=== PATIENT | male | born 1975 | race Caucasian/White ===

== ENCOUNTER 2022-06-07 18:09 | Inpatient (IN) | payer MEDICAID, SELFPAY ==
[2022-06-07 18:14] VITALS: BP 176/102; PULSE 104; RESP 20; TEMP 37.1; O2SAT 95
--- NOTE | 2022-06-07 18:33 | ED.C_ITS ---
HPI - Psych General: Chief Complaint: Psychiatric Symptoms Stated Complaint: SI Time Seen by Provider: 06/07/22 18:33 History of Present Illness: Mr. Marley is a 46-year-old gentleman with apparent history of depression presenting to the emergency department due to worsening depression with suicidal ideation. He reports a longstanding history with intermittent previous medication use however is not currently on medications, last psychiatric hospitalization was approximately 18 months ago. He reports worsening symptoms in the context of social stressors including losing his job, being away from his children, and money issues. Symptoms have intensified to the point that he feels quite suicidal and has considered various ways including overdose, hanging, being struck by motor vehicle. Reports poor sleep and poor appetite. He has a remote history of alcohol abuse and did drink a bottle of alcohol yesterday. Overall course of symptoms has worsened. No other specific changes in health, exacerbating, or alleviating factors identified. Duration: getting worse History of same: Yes Context: significant life stressor If self harm: admits thoughts of self harm and has plan Review of Systems General: Reports: 10 or more systems reviewed and unremarkable except in HPI and below PFSH ED PFSH: Medical History (Updated 06/12/22 @ 22:32 by Isai Feng MD) Depression Surgical History (Updated 06/12/22 @ 22:32 by Isai Feng MD) No significant past surgical history Physical Exam Const: COMMON NORMALS: alert GENERAL APPEARANCE: cooperative and well developed HENMT: COMMON NORMALS: normocephalic and atraumatic HEAD & SCALP: normocephalic and atraumatic Eye: COMMON NORMALS: conjunctivae normal CONJUNCTIVA: Yes conjunctivae normal SCLERA: sclerae normal Neck/C-Spine: COMMON NORMALS: supple GENERAL: Yes trachea midline Resp: COMMON NORMALS: clear to auscultation bilaterally EFFORT & INSPECTION: Yes able to speak in complete sentences AUSCULTATION: clear to auscultation bilaterally Cardio: COMMON NORMALS: regular rate and regular rhythm RATE: regular rate RHYTHM: regular rhythm GI: COMMON NORMALS: Soft to palpation PALPATION: Yes Soft to palpation and No Tenderness to palpation present (GI) Extremity: GENERAL: Yes normal exam except as noted and No edema Neuro: COMMON NORMALS: moves all extremities SENSORIUM/ORIENTATION: Yes alert and No Orientation impaired Psych: COMMON NORMALS: mental status grossly normal and Normal thought process present MOOD & AFFECT: Yes depressed mood, Yes sad and Yes Labile affect present THOUGHT PROCESS: Normal thought process present Course Vital Signs: Vital signs: Vital Signs Temperature 98.3 F 06/12/22 20:22 Pulse Rate 68 06/12/22 20:22 Respiratory Rate 16 06/12/22 20:22 Blood Pressure 168/94 06/12/22 20:22 Pulse Oximetry 96 06/12/22 20:22 Oxygen Delivery Me thod 06/07/22 22:52 MDM - Psych Medical Decision Making 47-year-old gentleman presenting with worsening suicidal ideation with a plan in the context of alcohol use and social stressors. No injuries on exam the patient is calm and cooperative. No significant hematologic or metabolic panel abnormalities requiring intervention, patient can adequately orally rehydrate. Toxic ingestions negative. UDS positive for THC. Based on ED evaluation and clinical history provided no indication for imaging at this time. Given worsening symptoms including suicidal ideation with plan believe that inpatient management is appropriate. Based on ED evaluation at this point there is no obvious condition that would preclude the patient from inpatient management of psychiatric concerns. The results of ED evaluation were discussed with the patient including plan for admission due to requirement for level of care not available if discharged to prevent significant worsening/deterioration. Patient agreeable with plan. Discussed with psychiatry service who was agreeable to admit patient. Medical Records I reviewed the patient's medical records. Lab Data I reviewed the patient's lab results. 06/07/22 19:31 06/07/22 19:31 Laboratory Results WBC 8.0 10^3/uL (4.0-10.0) 06/07/22 19: RBC 5.06 10^6/uL (4.1-5.3) 06/07/22 19: Hgb 16.5 g/dL (11.7-16.6) 06/07/22 19: Hct 46.0 % (42.0-52.0) 06/07/22 19: MCV 90.9 fl (80-94) 06/07/22 19: MCH 32.6 pg (28.0-34.0) 06/07/22 19: MCHC 35.9 g/dL (30.0-36.0) 06/07/22 19: RDW 11.8 % (12.1-15.1) L 06/07/22 19: Plt Count 264 10^3/cmm (130-400) 06/07/22 19: MPV 9.1 fL (7.4-10.4) 06/07/22 19: Neut % (Auto) 67.4 % 06/07/22 19: Lymph % (Auto) 23.4 % 06/07/22 19: Forrest % (Auto) 6.4 % 06/07/22 19: Eos % (Auto) 1.9 % 06/07/22 19: Baso % (Auto) 0.6 % 06/07/22 19: Neut # (Auto) 5.38 10^3/uL (1.8-7.7) 06/07/22: Lymph # (Auto) 1.9 10^3/uL (0.8-4.8) 06/07/22 19: Forrest # (Auto) 0.5 10^3/uL (0.2-0.9) 06/07/22: Eos # (Auto) 0.2 10^3/uL (0.0-0.8) 06/07/22 19: Baso # (Auto) 0.1 10^3/uL (0.0-0.1) 06/07/22 19: Nucleated RBC % (auto) 0 % 06/07/22 19: Nucleated RBCs # 0.0 /100WBC 06/07/22 19: Sodium 135 mmol/L (136-145) L 06/07/22 19: Potassium 4.4 mmol/L (3.5-5.1) 06/07/22 19: Chloride 97 mmol/L (98-107) L 06/07/22 19: Carbon Dioxide 25 mmol/L (22-29) 06/07/22 19: Anion Gap 17.4 (5-19) 06/07/22 19: BUN 11 mg/dL (6-20) 06/07/22 19: Creatinine 1.0 mg/dL (0.7-1.2) 06/07/22 19: GFR Calculation 81.2 mL/min (90-130) L 06/07/22 19: Glucose 77 mg/dL (65-115) 06/07/22 19:31 Calculated Osmolality 278 mOsm/kg (285-295) L 06/07/22 19:31 Calcium 9.7 mg/dL (8.5-10.5) 06/07/22 19: Total Bilirubin 0.9 mg/dL (0.15-1.2) 06/07/22 19:31 AST 19 U/L (0-40) 06/07/22 19: ALT 13 U/L (0-41) 06/07/22 19: Alkaline Phosphatase 75 U/L (40-130) 06/07/22 19:31 Total Protein 8.3 g/dL (6.6-8.7) 06/07/22 19: Albumin 4.6 g/dL (3.5-5.2) 06/07/22 19: Globulin 3.7 g/dL (1.3-4.6) 06/07/22 19: TSH 0.94 uIU/mL (0.27-4.20) 06/07/22 19:31 Salicylates < 0.3 mg/dL (3-10) L 06/07/22 19:31 Urine Opiates Screen Negative ng/mL (Negative) 06/07/22 20:04 Acetaminophen < 5.0 ug/mL (10-30) L 06/07/22 19:31 Ur Barbiturates Screen Negative ng/mL (Negative) 06/07/22 20:04 Ur Phencyclidine Scrn Negative ng/mL (Negative) 06/07/22 20:04 Ur Amphetamines Screen Negative ng/mL (Negative) 06/07/22 20:04 U Benzodiazepines Scrn Negative ng/mL (Negative) 06/07/22 20:04 Urine Cocaine Screen Negative ng/mL (Negative) 06/07/22 20:04 U Marijuana (THC) Screen Positive ng/mL (Negative) H 06/07/22 20:04 Ethyl Alcohol < 10 mg/dL (0-10) 06/07/22 19:31 Discharge Plan Discharge Patient Disposition: Admitted As Inpatient Admit Provider: Oswaldo Marley Clinical Impression: Suicidal ideation, Depression Condition: Stable Coding Level of Care Code ED Tapper Hand for Mamadou Harrell
[2022-06-07 19:42] LABS: Basophils # 0.1 10^3/uL (0.0-0.1); Basophils % 0.6 %; Eosinophils # 0.2 10^3/uL (0.0-0.8); Eosinophils % 1.9 %; Hemoglobin 16.5 g/dL (11.7-16.6); Lymphocytes # 1.9 10^3/uL (0.8-4.8); Lymphocytes % 23.4 %; Mean Corpuscular HGB Conc 35.9 g/dL (30.0-36.0); Mean Corpuscular Hemoglobin 32.6 pg (28.0-34.0); Mean Corpuscular Volume 90.9 fl (80-94); Mean Platelet Volume 9.1 fL (7.4-10.4); Monocytes # 0.5 10^3/uL (0.2-0.9); Monocytes % 6.4 %; Neutrophils # 5.38 10^3/uL (1.8-7.7); Neutrophils % 67.4 %; Nucleated Red Blood Cells % 0 %; Platelet Count 264 10^3/cmm (130-400); Red Blood Count 5.06 10^6/uL (4.1-5.3); Red Cell Distribution Width 11.8 % (12.1-15.1)
[2022-06-07 20:12] LABS: Alanine Aminotransferase 13 U/L (0-41); Albumin Level 4.6 g/dL (3.5-5.2); Alkaline Phosphatase 75 U/L (40-130); Anion Gap 17.4 (5-19); Aspartate Amino Transferase 19 U/L (0-40); Blood Urea Nitrogen 11 mg/dL (6-20); Calcium 9.7 mg/dL (8.5-10.5); Carbon Dioxide 25 mmol/L (22-29); Chloride 97 mmol/L (98-107); Globulin 3.7 g/dL (1.3-4.6); Glomerular Filtration Rate 81.2 mL/min (90-130); Glucose 77 mg/dL (65-115); Osmolality Calculated 278 mOsm/kg (285-295); Potassium 4.4 mmol/L (3.5-5.1); Sodium 135 mmol/L (136-145); Thyroid Stimulating Hormone 0.94 uIU/mL (0.27-4.20); Total Bilirubin 0.9 mg/dL (0.15-1.2); Total Protein 8.3 g/dL (6.6-8.7)
[2022-06-07 20:17] LABS: Acetaminophen < 5.0 ug/mL (10-30); Alcohol Level < 10 mg/dL (0-10); Salicylate < 0.3 mg/dL (3-10)
[2022-06-07] MEDS: LORazepam 0.5 mg Tablet PO (20:27)
[2022-06-07 20:34] LABS: Amphetamines Screen Urine Negative (Negative); Barbiturates Screen Urine Negative (Negative); Benzodiazepines Screen Urine Negative (Negative); Cocaine Screen Urine Negative (Negative); Opiate Screen Urine Negative (Negative); PCP Screen Urine Negative (Negative); THC Screen Urine Positive (Negative)
[2022-06-07 20:57] VITALS: BP 166/116; PULSE 68; RESP 18; TEMP 37; O2SAT 98
[2022-06-07] MEDS: hyDRALAzine 25 mg Tablet PO (22:37)
[2022-06-07 22:44] VITALS: BP 159/100; PULSE 73; RESP 16; O2SAT 98
[2022-06-07 22:48] VITALS: BP 145/100; PULSE 67; RESP 16; TEMP 36.7; O2SAT 100
[2022-06-07 22:52] VITALS: BMI 26.5
[2022-06-07] MEDS: trazodone 50 mg Tablet PO (23:28)
[2022-06-07] MEDS: hyDROXYzine 25 mg Capsule 50 MG PO (23:30)
[2022-06-08 06:00] VITALS: RESP 18
--- NOTE | 2022-06-08 09:51 | PC.OT ---
OT Eval attempted - Patient asleep at time of contact.
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
[2022-06-08 14:00] VITALS: BP 139/101; PULSE 88; RESP 18; O2SAT 98
[2022-06-08 20:07] VITALS: RESP 16
[2022-06-08] MEDS: fluoxetine 20 mg Capsule PO (20:35)
[2022-06-08] MEDS: OLANZapine 5 mg ODT PO (20:36)
[2022-06-08] MEDS: trazodone 50 mg Tablet PO (20:36)
[2022-06-08] MEDS: hyDROXYzine 25 mg Capsule 50 MG PO (20:36)
[2022-06-09 06:00] VITALS: RESP 18
[2022-06-09] MEDS: fluoxetine 20 mg Capsule PO (08:39)
[2022-06-09] MEDS: hyDROXYzine 25 mg Capsule 50 MG PO (08:39)
[2022-06-09 14:00] VITALS: BP 140/104; PULSE 83; RESP 17; TEMP 36.6; O2SAT 97
--- NOTE | 2022-06-09 15:18 | W.PM.NPUPNS ---
Subjective NPU Subjective: Patient presented today reporting that he is still having depression. We long discussion about how SSRIs work and that at this point are most interested in whether he is having side effects or feeling worse. He denies feeling worse but also denies feeling better. We discussed that we will be taking it a day at a time and that Dr. Braden will be in tomorrow to continue this journey. He reports he is eating okay and sleeping all right. Mental Status Exam MSE Comments: This is well nourished, well developed white male in hospital scrubs with limited grooming and eye contact. No abnormal movements except for psychomotor retardation. Mostly cooperative witth exam in mild to moderated distress. Speech was limited and decreased rate and volume. Mood described as I don't feel any better, affect is congruent and subdued. Thought process, organized. Thought content: patient endorses suicidal ideation but denies homicidal ideation, no delusions reported or noted and denies any auditory or visual hallucinations. Attention and concentration are intact and memory appeared reliable but none were formally tested. He is alert and oriented times three. Insight and judgment are limited. Impulse control is limited versus impaired. Vitals/I&O/Wt Last Vital Signs Temp 98 F 06/09/22 14:00 Pulse 83 06/09/22 14:00 Resp 17 06/09/22 14:00 BP 140/104 06/09/22 14:00 Pulse Ox 97 06/09/22 14:00 O2 Del Method 06/07/22 22:52 Weight last 48 hrs Weight 82.554 kg Data NPU 06/07/22 19:31 06/07/22 19:31 A&P Assessment and plan (1) Suicidal ideation: (2) Major depressive disorder, severe: (3) PTSD (post-traumatic stress disorder): Plan This is a 47 year old white man with a history of trauma, depression and genetic loading for mental health and lethality issues who presents reporting suicidal ideation and open to medications at this time. 1. Continue current medications. Started Prozac 20 mg poq daily 2. Encourage individual, group and milieu therapy 3. Continue q-15 minute check for safety 4. Recommend sober living treatment at the highest level of care to which the patient is willing to commit. Involuntary Hold Information 96 Hour Hold: 96 Hour Involuntary Admission: No Attestations NPU Medical Necessity Statement*: Inpatient hospitalization is medically necessary and the clinically appropriate intervention at this time. We will monitor medications and make changes as indicated. Likely length of stay is three to five days. Coding Level of Care Code Acute College Service Officer for [facility] Fwd Diagnoses Suicidal ideation R45.851 Major depressive disorder, severe F32.2 PTSD (post-traumatic stress disorder) F43.10
[2022-06-09 20:47] VITALS: PULSE 67; RESP 18; TEMP 36.8; O2SAT 99
[2022-06-09] MEDS: diphenhydrAMINE 50 mg Capsule PO (21:01)
[2022-06-09] MEDS: trazodone 50 mg Tablet PO ×2 (21:01→23:33)
[2022-06-09] MEDS: OLANZapine 5 mg ODT PO (22:22)
[2022-06-09] MEDS: haloperidol 5 mg Tablet PO (23:33)
[2022-06-10] MEDS: quetiapine 25 mg Tablet 50 MG PO (01:02)
[2022-06-10 05:20] VITALS: BP 132/100; PULSE 108; RESP 18; TEMP 36.4; O2SAT 98
[2022-06-10] MEDS: fluoxetine 20 mg Capsule PO (08:57)
[2022-06-10 14:00] VITALS: BP 126/88; PULSE 87; RESP 17; TEMP 36.8; O2SAT 98
[2022-06-10] MEDS: OLANZapine 5 mg ODT PO (17:58)
--- NOTE | 2022-06-10 18:05 | PC.NURSE ---
PT BECAME UPSET WHEN D[facility]NER [facility]RAY DIDN'T HAVE BROCCOLI HE HAD ORDERED, HE RECEIVED CARROTS. PT STOMPED OUT OF DAYROOM, WENT TO ROOM AND STARTED BANGING HEAD ON WALL, PT CRYING AND UPSET. PT GIVEN PRN ROS. THIS NURSE SPOKE TO PT CONCERNING MEAL AND WHY HE WAS UPSET. PT CALMED. PT RETURNED TO DAYROOM TO EAT MEAL
[2022-06-10] MEDS: haloperidol 5 mg Tablet PO (19:47)
[2022-06-10] MEDS: diphenhydrAMINE 50 mg Capsule PO (19:47)
[2022-06-10 20:51] VITALS: BP 153/100; PULSE 88; RESP 18; TEMP 36.7; O2SAT 98
--- NOTE | 2022-06-10 21:18 | W.PM.NPUPNS ---
Subjective NPU Subjective: Patient is a 47-year-old man admitted to PTSD and major depressive disorder with suicidal ideation. He continued endorsing depressed mood. He had continued to isolate himself on the milieu. He had endorsed continued feelings of helplessness. He reported having continuous negative thoughts in his head. He reported having difficulties with concentration and endorsed continued feelings of hopelessness for several weeks. He had reported that he had given up on getting help for treatment with his depression and stated that he continued to have thoughts that he should simply end it. Mental Status Exam MSE Comments: This is well nourished, well developed white male in hospital scrubs with poor grooming and limited eye contact. No abnormal movements except for severe psychomotor retardation. Mostly cooperative witth exam in mild to moderated distress. Speech was limited and decreased rate and decreased volume. Mood described as down. His , affect is tearful and dysphoric. . Thought process was organized. Thought content: patient endorses suicidal ideation but denies homicidal ideation, no delusions reported or noted and denies any auditory or visual hallucinations. Attention and concentration are poor and memory appeared reliable but none were formally tested. He is alert and oriented to person, place but not date today His insight is poor. His judgment is limited. Impulse control is limited versus impaired. Vitals/I&O/Wt Last Vital Signs Temp 98.1 F 06/10/22 20:51 Pulse 88 06/10/22 20:51 Resp 18 06/10/22 20:51 BP 153/100 06/10/22 20:51 Pulse Ox 98 06/10/22 20:51 O2 Del Method 06/07/22 22:52 Weight last 48 hrs Weight 82.554 kg Data NPU 06/07/22 19:31 06/07/22 19:31 A&P Assessment and plan (1) Suicidal ideation: (2) Major depressive disorder, severe: (3) PTSD (post-traumatic stress disorder): Plan This is a 47 year old white man with a history of trauma, depression and genetic loading for mental health and lethality issues who presents reporting suicidal ideation and open to medications at this time. 1. Increase Prozac to 30 mg daily. Add Seroquel adjunctively at 100 mg at night 2. Encourage individual, group and milieu therapy 3. Continue q-15 minute check for safety 4. Recommend sober living treatment at the highest level of care to which the patient is willing to commit. Involuntary Hold Information 96 Hour Hold: 96 Hour Involuntary Admission: No Attestations NPU Medical Necessity Statement*: Inpatient hospitalization is medically necessary and the clinically appropriate intervention at this time. We will monitor medications and make changes as indicated with likely length of stay three to five days. Coding Level of Care Code Established Pt Acute Aerobics Instructor for Mamadou Harrell Patient Type Established History Problem Focused Exam Problem Focused Medical Decision Making Straight Forward Diagnoses Suicidal ideation R45.851 Major depressive disorder, severe F32.2 PTSD (post-traumatic stress disorder) F43.10
[2022-06-10] MEDS: quetiapine 100 mg Tablet PO (21:58)
[2022-06-11 06:00] VITALS: RESP 16
[2022-06-11] MEDS: fluoxetine 10 mg Capsule PO (08:33)
[2022-06-11] MEDS: fluoxetine 20 mg Capsule PO (08:33)
[2022-06-11 14:00] VITALS: BP 146/98; PULSE 74; RESP 18; TEMP 36.6; O2SAT 98
--- NOTE | 2022-06-11 16:59 | P.NPUPN_ITS ---
Subjective NPU Subjective: Patient is a 47-year-old man admitted to PTSD and major depressive disorder with suicidal ideation. He had reported some improvement in sleep having taken Seroquel at night. He had continue to endorse feeling hopeless and reported infrequent suicidal thoughts. He had reported tremendous difficulties with concentration. He had reportedly overall decline in his ability to care for himself over the past year. He had reported significant losses that continued to recur and he has As he reported frequently ruminating about his thoughts. He had reported having recurrent thoughts that he was not worth the effort to be alive. Mental Status Exam MSE Comments: This is well nourished, well developed white male in hospital scrubs with poor grooming and limited eye contact lying in bed. No abnormal movements except for severe psychomotor retardation. Mostly cooperative witth exam in mild to moderated distress. Speech was limited in spontaneity and decreased rate and decreased volume. Mood described as down. His affect is tearful and dysphoric. . Thought process was organized. Thought content: patient endorses suicidal ideation but denies homicidal ideation, no delusions reported or noted and denies any auditory or visual hallucinations. Attention and concentration are poor and memory appeared reliable but none were formally tested. He is alert and oriented to person and place but not date today. His insight is poor. His judgment is limited. Impulse control is poor. Vitals/I&O/Wt Last Vital Signs Temp 97.9 F 06/11/22 14:00 Pulse 79 06/11/22 20:19 Resp 18 06/11/22 20:19 BP 146/98 06/11/22 20:19 Pulse Ox 96 06/11/22 20:19 O2 Del Method 06/07/22 22:52 Weight last 48 hrs Weight 82.554 kg Data NPU 06/07/22 19:31 06/07/22 19:31 A&P Assessment and plan (1) Suicidal ideation: (2) Major depressive disorder, severe: (3) PTSD (post-traumatic stress disorder): Plan This is a 47 year old white man with a history of trauma, depression and genetic loading for mental health and lethality issues who presents reporting suicidal ideation and open to medications at this time. 1. Increase Prozac to 40 mg daily. Continue Seroquel adjunctively at 100 mg at night 2. Encourage individual, group and milieu therapy 3. Continue q-15 minute check for safety 4. Recommend sober living treatment at the highest level of care to which the patient is willing to commit. Involuntary Hold Information 96 Hour Hold: 96 Hour Involuntary Admission: No Attestations NPU Medical Necessity Statement*: Inpatient hospitalization is medically necessary and the clinically appropriate intervention at this time. We will monitor medications and make changes as indicated with likely length of stay three to five days. Coding Level of Care Code Established Pt Acute Home Energy Consultant Supervisor for [employer] Fwd Patient Type Established History Problem Focused Exam Problem Focused Medical Decision Making Straight Forward Diagnoses Suicidal ideation R45.851 Major depressive disorder, severe F32.2 PTSD (post-traumatic stress disorder) F43.10
[2022-06-11 20:19] VITALS: BP 146/98; PULSE 79; RESP 18; O2SAT 96
[2022-06-11] MEDS: quetiapine 100 mg Tablet PO (20:35)
[2022-06-12 05:28] VITALS: BP 142/98; PULSE 66; RESP 17; TEMP 36.4; O2SAT 97
[2022-06-12] MEDS: fluoxetine 20 mg Capsule 40 MG PO (08:18)
[2022-06-12] MEDS: OLANZapine 5 mg ODT PO (09:02)
[2022-06-12] MEDS: nicotine 2 mg Gum BUCCAL ×2 (09:02→18:25)
[2022-06-12 14:00] VITALS: BP 144/89; PULSE 115; RESP 18; TEMP 36.6; O2SAT 97
--- NOTE | 2022-06-12 17:02 | W.PM.NPUPNS ---
Subjective NPU Subjective: Patient is a 47-year-old man admitted to PTSD and major depressive disorder with suicidal ideation. Patient continued to endorse feelings of hopelessness and worthlessness. He continued to have significant negative thoughts with feelings as if he was to blame for his condition. 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 He reported struggles with concentration and reports that he is fearful that he may lose his job. He had reported having considerable difficulties with falling asleep last night despite taking the Seroquel. He continued to report problems with excessive worry as well and reported struggles with maintaining self-care. The patient did require some prompting for completion of activities of daily living including showering. Mental Status Exam MSE Comments: This is well nourished, well developed white male in hospital scrubs with poor grooming, poor hygiene, and limited eye contact lying in bed. The patient had severe psychomotor retardation. Mostly cooperative with exam in mild to moderated distress. Speech was limited in spontaneity and decreased rate and decreased volume. Mood described as down. His affect is restricted in range, mood congruent. Thought process was linear. Thought content: patient endorses suicidal ideation but denies homicidal ideation, no delusions reported or noted and denies any auditory or visual hallucinations. Attention and concentration are poor and remote memory intact, recent memory was poor. He is alert and oriented to person and place and time today. His insight is poor. His judgment is limited. Impulse control is poor. Vitals/I&O/Wt Last Vital Signs Temp 98 F 06/12/22 14:00 Pulse 115 H 06/12/22 14:00 Resp 18 06/12/22 14:00 BP 144/89 06/12/22 14:00 Pulse Ox 97 06/12/22 14:00 O2 Del Method 06/07/22 22:52 Data NPU 06/07/22 19:31 06/07/22 19:31 A&P Assessment and plan (1) Suicidal ideation: (2) Major depressive disorder, severe: (3) PTSD (post-traumatic stress disorder): Plan This is a 47 year old white man with a history of trauma, depression and genetic loading for mental health and lethality issues who presents reporting suicidal ideation and open to medications at this time. 1. Continue Prozac at 40 mg daily. Increase Seroquel to 150mg at night 2. Encourage individual, group and milieu therapy 3. Continue q-15 minute check for safety 4. Recommend sober living treatment at the highest level of care to which the patient is willing to commit. Involuntary Hold Information 96 Hour Hold: 96 Hour Involuntary Admission: No Attestations NPU Medical Necessity Statement*: Inpatient hospitalization is medically necessary and the clinically appropriate intervention at this time. We will monitor medications and make changes as indicated with likely length of stay five to seven days. 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
[2022-06-12] MEDS: quetiapine 300 mg Tablet 150 MG PO (20:17)
[2022-06-12 20:22] VITALS: BP 168/94; PULSE 68; RESP 16; TEMP 36.8; O2SAT 96
--- NOTE | 2022-06-12 20:45 | PC.NURSE ---
B/P retaken due to high blood pressure earlier in shift. B/P taken manually in Left arm. Results of 132/88 noted with a pulse of 89. No signs of distress noted. Patient denies dizziness, H/A or N/V. Sitting in dayroom watching TV with peers.
[2022-06-12] MEDS: trazodone 50 mg Tablet PO (22:19)
[2022-06-13] MEDS: trazodone 50 mg Tablet PO ×2 (00:40→22:32)
[2022-06-13 06:00] VITALS: BP 130/99; PULSE 120; RESP 17; TEMP 36.4; O2SAT 98
[2022-06-13] MEDS: magnesium hydroxide 30 mL UDC PO (06:27)
[2022-06-13] MEDS: OLANZapine 5 mg ODT PO (07:37)
[2022-06-13] MEDS: fluoxetine 20 mg Capsule 40 MG PO (08:06)
[2022-06-13] MEDS: nicotine 2 mg Gum BUCCAL ×2 (09:03→14:38)
[2022-06-13 14:00] VITALS: BP 142/92; PULSE 76; RESP 16; TEMP 37.1; O2SAT 99
--- NOTE | 2022-06-13 18:47 | P.NPUPN_ITS ---
Subjective NPU Subjective: Patient is a 47-year-old man admitted to PTSD and major depressive disorder with suicidal ideation. The patient was less isolative on the milieu. He continued to endorse feelings of hopelessness and worthlessness. He had reported some improved sleep. He states that he had been paralyzed by his depression and it had led to his recent loss of a job. He had reported no history of kunal. He reports that he is willing to get psychotherapy and reported that case management services would likely benefit him. He had reported some improvement in appetite. He continued to report having problems with chronic worry. He did continue to endorse anhedonia. Mental Status Exam MSE Comments: This is well nourished, well developed white male in hospital scrubs with poor grooming, poor hygiene, and limited eye contact lying in bed. The patient had severe psychomotor retardation. Mostly cooperative with exam in mild to moderated distress. Speech was limited in spontaneity and decreased rate and decreased volume. Mood described as depressed. His affect is restricted in range, mood congruent. Thought process was linear. Thought content: patient endorses suicidal ideation but denies homicidal ideation, no delusions reported or noted and denies any auditory or visual hallucinations. Attention and concentration are poor and remote memory intact, recent memory was poor. He is alert and oriented to person and place and time today. His insight is poor. His judgment is limited. Impulse control is poor. Vitals/I&O/Wt Last Vital Signs Temp 98.7 F 06/13/22 14:00 Pulse 76 06/13/22 14:00 Resp 16 06/13/22 14:00 BP 142/92 06/13/22 14:00 Pulse Ox 99 06/13/22 14:00 O2 Del Method 06/13/22 14:00 Data NPU 06/07/22 19:31 06/07/22 19:31 A&P Assessment and plan (1) Suicidal ideation: (2) Major depressive disorder, severe: (3) PTSD (post-traumatic stress disorder): Plan This is a 47 year old white man with a history of trauma, depression and genetic loading for mental health and lethality issues who presents reporting suicidal ideation and open to medications at this time. 1. Continue Prozac at 40 mg daily. Continue Seroquel to 150mg at night. The patient was provided information regarding other modalities of treating severe depression including ECT, transcranial magnetic stimulation pharmacotherapy and psychotherapy. 2. Encourage individual, group and milieu therapy 3. Continue q-15 minute check for safety 4. Recommend sober living treatment at the highest level of care to which the patient is willing to commit. Involuntary Hold Information 2 96 Hour Hold: 96 Hour Involuntary Admission: No Attestations NPU Medical Necessity Statement*: Inpatient hospitalization is medically necessary and the clinically appropriate intervention at this time. We will monitor medications and make changes as indicated with likely length of stay five to seven days. 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
[2022-06-13] MEDS: quetiapine 300 mg Tablet 150 MG PO (19:59)
[2022-06-13 20:22] VITALS: BP 146/99; PULSE 68; RESP 18; TEMP 36.7; O2SAT 99
[2022-06-13] MEDS: alum-mag-hydroxide-sime 30 mL UDC 15 ML PO (22:31)
[2022-06-14] MEDS: ondansetron 4 MG Tablet PO (04:07)
[2022-06-14 06:00] VITALS: RESP 18
[2022-06-14] MEDS: fluoxetine 20 mg Capsule 40 MG PO (08:28)
[2022-06-14] MEDS: nicotine 2 mg Gum BUCCAL ×2 (08:29→14:21)
[2022-06-14] MEDS: OLANZapine 5 mg ODT PO (11:13)
[2022-06-14] MEDS: acetaminophen 325 mg Tablet 650 MG PO ×2 (11:13→21:13)
[2022-06-14 13:56] VITALS: BP 143/98; PULSE 79; RESP 18; TEMP 36.7; O2SAT 95
--- NOTE | 2022-06-14 17:15 | P.NPUPN_ITS ---
Subjective NPU Subjective: Patient is a 47-year-old man admitted to PTSD and major depressive disorder with suicidal ideation. Patient continued to endorse depressed mood. He had continued to report having distrust of others. He reported low energy and low motivation. He continued to isolate himself in his room throughout much of the day. He reported no side effects from his medication thus far. He had reported sleeping better. He had reported an extended history of decline in regards to mood with loss of energy loss of motivation and some weight loss. Mental Status Exam MSE Comments: This is well nourished, well developed white male in hospital scrubs with improved grooming, poor hygiene, and limited eye contact. The patient showed evidence of psychomotor retardation. He was mostly cooperative with exam in mild to moderated distress. Speech was limited in spontaneity and decreased rate and normal volume. Mood described as depressed. His affect is restricted in range, mood congruent. Thought process was linear. Thought content: patient endorses no suicidal ideation and denies homicidal ideation. There were no delusions reported or noted and denies any auditory or visual hallucinations. Attention and concentration are poor and remote memory intact, recent memory was poor. He is alert and oriented to person and place and time today. His insight is poor. His judgment is limited. Impulse control is poor. Vitals/I&O/Wt Last Vital Signs Temp 98.1 F 06/14/22 13:56 Pulse 79 06/14/22 13:56 Resp 18 06/14/22 13:56 BP 143/98 06/14/22 13:56 Pulse Ox 95 06/14/22 13:56 O2 Del Method 06/13/22 14:00 Data NPU 06/07/22 19:31 06/07/22 19:31 A&P Assessment and plan (1) Suicidal ideation: (2) Major depressive disorder, severe: (3) PTSD (post-traumatic stress disorder): Plan This is a 47 year old white man with a history of trauma, depression and genetic loading for mental health and lethality issues who presents reporting suicidal ideation and open to medications at this time. 1. Continue Prozac at 40 mg daily. Increase Seroquel to 200mg at night. The patient was provided information regarding other modalities of treating severe depression including ECT, transcranial magnetic stimulation pharmacotherapy and psychotherapy. 2. Encourage individual, group and milieu therapy 3. Continue q-15 minute check for safety 4. Recommend sober living treatment at the highest level of care to which the patient is willing to commit. Involuntary Hold Information 96 Hour Hold: 96 Hour Involuntary Admission: No Attestations NPU Medical Necessity Statement*: Inpatient hospitalization is medically necessary and the clinically appropriate intervention at this time. We will monitor medications and make changes as indicated with likely length of stay of five to seven days. 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
[2022-06-14] MEDS: nicotine 4 mg lozenge MUCOUS MEM (18:21)
[2022-06-14] MEDS: trazodone 50 mg Tablet PO ×2 (19:27→21:13)
[2022-06-14] MEDS: quetiapine 100 mg Tablet 200 MG PO (19:27)
[2022-06-14 19:53] VITALS: BP 153/96; PULSE 65; RESP 17; TEMP 36.7; O2SAT 100
[2022-06-15] MEDS: calcium carbonate 500 mg Chew Tablet PO (04:54)
[2022-06-15 05:58] VITALS: BP 143/77; PULSE 87; RESP 18; TEMP 36.4; O2SAT 97
[2022-06-15] MEDS: fluoxetine 20 mg Capsule 40 MG PO (08:34)
[2022-06-15] MEDS: acetaminophen 325 mg Tablet 650 MG PO ×2 (08:46→16:29)
[2022-06-15] MEDS: OLANZapine 5 mg ODT PO (09:09)
[2022-06-15] MEDS: nicotine 4 mg lozenge MUCOUS MEM ×4 (09:36→21:08)
[2022-06-15 14:00] VITALS: RESP 18
--- NOTE | 2022-06-15 17:55 | W.PM.NPUPNS ---
Subjective NPU Subjective: Patient is a 47-year-old man admitted to PTSD and major depressive disorder with suicidal ideation. The patient had periods of intense sadness reported as he was seen crying on the milieu. He did report that he was making some progress with his depression. He has reported some improvement in motivation. He had reported requiring trazodone for sleep. He had reported a history of frequent awakenings at night. He reports low energy and diminished appetite although he states his sleep has been better. The patient reported no active suicidal thoughts although he did report some passive suicidal thoughts in today. Patient continued to report low energy. He also reported some improvement in concentration over the past few days with improved sleep. Mental Status Exam MSE Comments: This is well nourished, well developed white male in hospital scrubs with improved grooming, poor hygiene, and limited eye contact. The patient showed evidence of psychomotor retardation. He was mostly cooperative with exam in mild to moderated distress. Speech was limited in spontaneity and decreased rate and normal volume. Mood described as better. His affect is restricted in range, mood incongruent. Thought process was linear. Thought content: patient endorses no suicidal ideation and denies homicidal ideation. There were no delusions reported or noted and denies any auditory or visual hallucinations. Attention and concentration are poor and remote memory intact, recent memory was poor. He is alert and oriented to person and place and time today. His insight is poor. His judgment is limited. Impulse control is poor. Vitals/I&O/Wt Last Vital Signs Temp 97.6 F 06/15/22 05:58 Pulse 87 06/15/22 05:58 Resp 18 06/15/22 05:58 BP 143/77 06/15/22 05:58 Pulse Ox 97 06/15/22 05:58 O2 Del Method 06/14/22 19:53 Data NPU 06/07/22 19:31 06/07/22 19:31 A&P Assessment and plan (1) Suicidal ideation: (2) Major depressive disorder, severe: (3) PTSD (post-traumatic stress disorder): Plan This is a 47 year old white man with a history of trauma, depression and genetic loading for mental health and lethality issues who presents reporting suicidal ideation and open to medications at this time. 1. Continue Prozac at 40 mg daily. Continue Seroquel at 200mg at night. Add Trazodone 50mg at night. The patient was provided information regarding other modalities of treating severe depression including ECT, transcranial magnetic stimulation pharmacotherapy and psychotherapy. 2. Encourage individual, group and milieu therapy 3. Continue q-15 minute check for safety 4. Recommend sober living treatment at the highest level of care to which the patient is willing to commit. Involuntary Hold Information 96 Hour Hold: 96 Hour Involuntary Admission: No Attestations NPU Medical Necessity Statement*: Inpatient hospitalization is medically necessary and the clinically appropriate intervention at this time. We will monitor medications and make changes as indicated with likely length of stay of five to seven days. 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
[2022-06-15 20:10] VITALS: BP 128/94; PULSE 75; RESP 18; TEMP 36.6; O2SAT 98
[2022-06-15] MEDS: quetiapine 100 mg Tablet 200 MG PO (20:35)
[2022-06-15] MEDS: trazodone 50 mg Tablet PO (21:53)
[2022-06-16] MEDS: calcium carbonate 500 mg Chew Tablet PO (04:36)
[2022-06-16] MEDS: nicotine 4 mg lozenge MUCOUS MEM ×2 (05:44→11:35)
[2022-06-16 06:00] VITALS: BP 134/90; PULSE 108; RESP 17; TEMP 36.4; O2SAT 98
[2022-06-16] MEDS: OLANZapine 5 mg ODT PO (07:38)
[2022-06-16] MEDS: fluoxetine 20 mg Capsule 40 MG PO (09:35)
[2022-06-16] MEDS: hyDROXYzine 25 mg Capsule 50 MG PO (10:16)
[2022-06-16] MEDS: haloperidol 5 mg Tablet PO (10:16)
[2022-06-16] MEDS: nicotine 2 mg Gum BUCCAL ×2 (13:41→19:49)
[2022-06-16 14:00] VITALS: BP 150/100; PULSE 129; RESP 18; TEMP 36.6; O2SAT 96
--- NOTE | 2022-06-16 18:35 | P.NPUPN_ITS ---
Subjective NPU Subjective: Patient presented today reporting that he is doing okay. He reports that he went better than he he was doing last saw me. He reports that he was working with Dr. Braden and the treatment team and reported that the plan is for discharge on Saturday and has been set up with a case briefer leaving on Saturday morning and it appears that housing has been identified as well. Mental Status Exam MSE Comments: This is well nourished, well developed white male in hospital scrubs with improved grooming but poor hygiene, and limited eye contact. The patient showed evidence of psychomotor retardation. He was mostly cooperative with exam in mild distress. Speech was limited in spontaneity and decreased rate and normal volume. Mood described as better. His affect is restricted in range, mood incongruent. Thought process was linear. Thought content: patient denied suicidal or homicidal ideation. There were no delusions reported or noted and denies any auditory or visual hallucinations. Attention and concentration are improving and remote memory intact, recent memory was poor. He is alert and oriented to person and place and time today. His insight is poor. His judgment is limited. Impulse control is poor, but improving. Vitals/I&O/Wt Last Vital Signs Temp 98.2 F 06/16/22 20:09 Pulse 90 06/16/22 20:09 Resp 17 06/16/22 20:09 BP 143/100 06/16/22 20:09 Pulse Ox 96 06/16/22 20:09 O2 Del Method 06/16/22 20:09 Weight last 48 hrs Weight 86.364 kg Data NPU 06/07/22 19:31 06/07/22 19:31 A&P Assessment and plan (1) Suicidal ideation: (2) Major depressive disorder, severe: (3) PTSD (post-traumatic stress disorder): Plan This is a 47 year old white man with a history of trauma, depression and genetic loading for mental health and lethality issues who presents reporting suicidal ideation and open to medications at this time. 1. Continue Prozac at 40 mg daily. Continue Seroquel at 200mg at night. Add Trazodone 50mg at night. The patient was provided information regarding other modalities of treating severe depression including ECT, transcranial magnetic stimulation pharmacotherapy and psychotherapy. 2. Encourage individual, group and milieu therapy 3. Continue q-15 minute check for safety 4. Recommend sober living treatment at the highest level of care to which the patient is willing to commit. Involuntary Hold Information 96 Hour Hold: 96 Hour Involuntary Admission: No Attestations NPU Medical Necessity Statement*: Inpatient hospitalization is medically necessary and the clinically appropriate intervention at this time. We will monitor medications and make changes as indicated with likely length of stay of 2 days. 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
[2022-06-16 20:09] VITALS: BP 143/100; PULSE 90; RESP 17; TEMP 36.8; O2SAT 96
[2022-06-16] MEDS: quetiapine 100 mg Tablet 200 MG PO (20:38)
[2022-06-16] MEDS: trazodone 50 mg Tablet PO (20:39)
[2022-06-17] MEDS: trazodone 50 mg Tablet PO ×2 (00:35→21:51)
[2022-06-17] MEDS: calcium carbonate 500 mg Chew Tablet PO (04:11)
[2022-06-17 06:00] VITALS: BP 147/100; PULSE 97; RESP 16; TEMP 36.7; O2SAT 97
[2022-06-17] MEDS: OLANZapine 5 mg ODT PO ×2 (06:31→11:57)
--- NOTE | 2022-06-17 06:32 | PC.NURSE ---
Patient came to nurse's station requesting prn for agitation. Patient became tearful and was visibly upset. Stated I can't stop thinking about my kids. I'm not there for them today and I've let them down. I feel awful. Discussed positive coping skills and offered distractions but patient continued to be upset and agitated. PRN zyprexa po offered and taken. Continued to discuss coping skills and discussed goals for the day.
[2022-06-17] MEDS: loperamide 2 mg Capsule PO (06:57)
[2022-06-17] MEDS: fluoxetine 20 mg Capsule 40 MG PO (09:02)
[2022-06-17] MEDS: hyDROXYzine 25 mg Capsule 50 MG PO (09:02)
[2022-06-17] MEDS: nicotine 2 mg Gum BUCCAL (09:02)
[2022-06-17] MEDS: ibuprofen 600 mg Tablet PO (09:03)
--- NOTE | 2022-06-17 09:04 | PC.NURSE ---
PRN VISTARIL 50 MG GIVEN PO PER PT C/O STATED ANXIETY
--- NOTE | 2022-06-17 09:36 | W.PM.NPUPNS ---
Subjective NPU Subjective: Patient presented today reporting that he is feeling like he accomplished everything he needed to during this hospitalization. He continued to report an appointment with his caseworker intake and at 9 the morning on Saturday making discharge tomorrow the most appropriate plan. He denies any issues with the medications. Mental Status Exam MSE Comments: This is well nourished, well developed white male in hospital scrubs with improved grooming but poor hygiene, and limited eye contact. The patient showed evidence of mild psychomotor retardation. He was mostly cooperative with exam in no acute distress. Speech was limited in spontaneity and decreased rate and normal volume. Mood described as better. His affect is restricted in range, mood incongruent. Thought process was linear. Thought content: patient denied suicidal or homicidal ideation. There were no delusions reported or noted and denies any auditory or visual hallucinations. Attention and concentration are improving and remote memory intact, recent memory was poor. He is alert and oriented to person and place and time today. His insight is limited. His judgment is limited. Impulse control is improving. Vitals/I&O/Wt Last Vital Signs Temp 98.0 F 06/17/22 06:00 Pulse 97 06/17/22 06:00 Resp 16 06/17/22 06:00 BP 147/100 06/17/22 06:00 Pulse Ox 97 06/17/22 06:00 O2 Del Method 06/17/22 06:00 Weight last 48 hrs Weight 86.364 kg Data NPU 06/07/22 19:31 06/07/22 19:31 A&P Assessment and plan (1) Suicidal ideation: (2) Major depressive disorder, severe: (3) PTSD (post-traumatic stress disorder): Plan This is a 47 year old white man with a history of trauma, depression and genetic loading for mental health and lethality issues who presents reporting suicidal ideation and open to medications at this time. 1. Continue Prozac at 40 mg daily. Continue Seroquel at 200mg at night. Add Trazodone 50mg at night. The patient was provided information regarding other modalities of treating severe depression including ECT, transcranial magnetic stimulation pharmacotherapy and psychotherapy. 2. Encourage individual, group and milieu therapy 3. Continue q-15 minute check for safety 4. Recommend sober living treatment at the highest level of care to which the patient is willing to commit. Involuntary Hold Information 96 Hour Hold: 96 Hour Involuntary Admission: No Attestations NPU Medical Necessity Statement*: Inpatient hospitalization is medically necessary and the clinically appropriate intervention at this time. We will monitor medications and make changes as indicated. Likely discharge tomorrow. 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
[2022-06-17] MEDS: nicotine 4 mg lozenge MUCOUS MEM ×5 (11:17→21:52)
--- NOTE | 2022-06-17 11:57 | PC.NURSE ---
PRN ZYPREXA ZYDIS 5 MG GIVEN PO SUBLINGUAL PER PT C/O FURTHER ANXIETY, PT SAYS I FEEL LIKE I'M ABOUT TO FALL OFF THE LEDGE, I NEED SOMETHING ELSE
[2022-06-17 14:00] VITALS: BP 143/90; PULSE 71; RESP 18; TEMP 36.6; O2SAT 99
[2022-06-17] MEDS: quetiapine 100 mg Tablet 200 MG PO (19:52)
[2022-06-17] MEDS: docusate sodium 100 mg Capsule PO (19:54)
[2022-06-17 19:55] VITALS: BP 136/94; PULSE 80; RESP 18; O2SAT 97
[2022-06-18] MEDS: trazodone 50 mg Tablet PO (00:54)
[2022-06-18 06:00] VITALS: BP 142/99; PULSE 92; RESP 17; TEMP 36.8; O2SAT 97
[2022-06-18] MEDS: nicotine 4 mg lozenge MUCOUS MEM ×2 (06:26→09:25)
[2022-06-18] MEDS: fluoxetine 20 mg Capsule 40 MG PO (08:22)
[2022-06-18] MEDS: OLANZapine 5 mg ODT PO (08:40)
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
[2022-06-18 12:31] VITALS: BP 142/99; PULSE 92; RESP 17; TEMP 36.8; O2SAT 97
[2022-06-18] MEDS: nicotine 2 mg Gum BUCCAL (13:21)
== END 2022-06-18 13:49 | disposition home or self-care (01) | DRG 885 ==
LOC: ER 19:26 → NP 22:45
PROVIDERS: Admitting Provider Psychiatry & Neurology Psychiatry; Emergency Provider Emergency Medicine; Visit Provider Psychiatry & Neurology Psychiatry
DX: F33.2 Major depressive disorder, recurrent severe without psychotic features (principal); R45.851 Suicidal ideations; F43.10 Post-traumatic stress disorder, unspecified; F17.210 Nicotine dependence, cigarettes, uncomplicated; F10.11 Alcohol abuse, in remission; Y90.0 Blood alcohol level of less than 20 mg/100 ml; Z91.52 Personal history of nonsuicidal self-harm; Z81.8 Family history of other mental and behavioral disorders; Z62.810 Personal history of physical and sexual abuse in childhood; Z62.811 Personal history of psychological abuse in childhood; Z59.86 Financial insecurity; Z59.00 Homelessness unspecified; Z56.0 Unemployment, unspecified; Z63.79 Other stressful life events affecting family and household
CPT/HCPCS: 36415; 80053; 80306; 80307; 84443; 85025; 97150; 97165; Q0162; Q0163

== ENCOUNTER 2022-07-02 20:12 | Inpatient (IN) | payer BC, SELFPAY ==
[2022-07-02 20:19] VITALS: BP 156/114; PULSE 64; RESP 18; TEMP 36.8; O2SAT 97; BMI 27.9
--- NOTE | 2022-07-02 20:25 | W.ED.PSYCHS ---
Documented by User: BRITTANY Clemente 07/02/22 21:53 HPI - Psych General: Chief Complaint: Psychiatric Symptoms Stated Complaint: SI Time Seen by Provider: 07/02/22 20:20 Source: patient Mode of arrival: ambulatory Limitations: no limitations History of Present Illness: Patient is a 47-year-old male who presents to ED today with a complaint of suicidal ideations. Patient states he is having significant thoughts of wanting to commit suicide and had a plan to run his car into oncoming traffic. Patient states he is hearing voices inside my own head telling me to just do it and get it over with . He does not report any previous suicide attempts. He is not homicidal. No hallucinations. Patient was admitted to [facility] last month for similar symptoms. He states he has been taking all of his medications that were prescribed at [facility] as directed but they do not seem to be helping. MD complaint: suicidal ideation and feels depressed Onset (ago): day(s) Duration: constant History of same: Yes Relieving factors: none Exacerbating factors: none Associated symptoms: Reports depression and suicidal ideation; Deny auditory hallucinations, visual hallucinations or homicidal ideation Treatments prior to arrival: none If self harm: admits thoughts of self harm Review of Systems Const: Denies: fever(s) or chills Card: Denies: chest pain, palpitations, lightheadedness or syncope Resp: Denies: dyspnea GI: Denies: abdominal pain, nausea, vomiting or diarrhea : Denies: flank pain or dysuria Skin/Breast: Denies: rash Neuro: Denies: headache(s) Psych: Reports: depression, hopelessness, loss of interest and suicidal ideation; Denies: visual hallucinations, auditory hallucinations or homicidal ideation [facility] ED PFSH: Medical History Depression Surgical History No significant past surgical history Physical Exam Const: COMMON NORMALS: no acute distress, patient oriented x3, alert and well nourished GENERAL APPEARANCE: cooperative and well kempt Resp: COMMON NORMALS: normal respiratory effort and clear to auscultation bilaterally AUSCULTATION: clear to auscultation bilaterally Cardio: COMMON NORMALS: regular rate and regular rhythm RATE: regular rate RHYTHM: regular rhythm Neuro: JOSEPHINE COMA SCALE: document GCS findings Josephine coma scale eye opening: Spontaneous Rollins coma scale verbal response: Orientated Josephine coma scale motor response: Obey commands Rollins coma scale total score: 15 COMMON NORMALS: patient oriented x3 SENSORIUM/ORIENTATION: Yes alert Psych: COMMON NORMALS: mental status grossly normal, Normal thought process present, cooperative, normal affect, speech normal, activity/motor behavior normal, denies hallucinations and denies homicidal ideation APPEARANCE: Yes grossly normal and Yes well kempt ATTITUDE: Yes calm ACTIVITY/MOTOR BEHAVIOR: Yes appropriate eye contact and No psychomotor agitation SPEECH: Yes normal speech MOOD & AFFECT: Yes euthymic mood THOUGHT PROCESS: Normal thought process present THOUGHT CONTENT: Yes Normal thought content present ATTENTION/CONCENTRATION: Yes attention grossly intact and Yes concentration grossly intact MEMORY/COGNITION: Yes memory grossly intact and Yes cognition grossly intact INSIGHT: Good insight present (Psych) JUDGEMENT: Good judgement present (Psych) Course Consultations: Consultation #1: Dr. Marley-accepts to [facility] Vital Signs: Vital signs: Vital Signs Temperature 98.3 F 07/05/22 15:42 Pulse Rate 75 07/05/22 15:42 Respiratory Rate 18 07/05/22 15:42 Blood Pressure 149/99 07/05/22 15:42 Pulse Oximetry 97 07/05/22 15:42 Oxygen Delivery Me thod 07/05/22 15:22 MDM - Psych Medical Decision Making Patient will be an admit to NPU to Dr. Marley. Lab Data 07/02/22 20:36 07/02/22 20:36 Laboratory Results WBC 8.9 10^3/uL (4.0-10.0) 07/02/22 20:36 RBC 4.94 10^6/uL (4.1-5.3) 07/02/22 20:36 Hgb 16.0 g/dL (11.7-16.6) 07/02/22 20:36 Hct 46.2 % (42.0-52.0) 07/02/22 20:36 MCV 93.5 fl (80-94) 07/02/22 20:36 MCH 32.4 pg (28.0-34.0) 07/02/22 20:36 MCHC 34.6 g/dL (30.0-36.0) 07/02/22 20:36 RDW 12.0 % (12.1-15.1) L 07/02/22 20:36 Plt Count 263 10^3/cmm (130-400) 07/02/22 20:36 MPV 8.9 fL (7.4-10.4) 07/02/22 20:36 Neut % (Auto) 71.8 % 07/02/22 20:36 Lymph % (Auto) 18.1 % 07/02/22 20:36 [place] % (Auto) 6.1 % 07/02/22 20:36 Eos % (Auto) 2.7 % 07/02/22 20:36 Baso % (Auto) 0.6 % 07/02/22 20:36 Neut # (Auto) 6.36 10^3/uL (1.8-7.7) 07/02/22 20:36 Lymph # (Auto) 1.6 10^3/uL (0.8-4.8) 07/02/22 20:36 [place] # (Auto) 0.5 10^3/uL (0.2-0.9) 07/02/22 20:36 Eos # (Auto) 0.2 10^3/uL (0.0-0.8) 07/02/22 20:36 Baso # (Auto) 0.1 10^3/uL (0.0-0.1) 07/02/22 20:36 Nucleated RBC % (auto) 0 % 07/02/22 20:36 Nucleated RBCs # 0.0 /100WBC 07/02/22 20:36 Sodium 138 mmol/L (136-145) 07/02/22 20:36 Potassium 4.2 mmol/L (3.5-5.1) 07/02/22 20:36 Chloride 103 mmol/L (98-107) 07/02/22 20:36 Carbon Dioxide 23 mmol/L (22-29) 07/02/22 20:36 Anion Gap 16.2 (5-19) 07/02/22 20:36 BUN 7 mg/dL (6-20) 07/02/22 20:36 Creatinine 0.9 mg/dL (0.7-1.2) 07/02/22 20:36 GFR Calculation 91.3 mL/min (90-130) 07/02/22 20:36 Glucose 83 mg/dL (65-115) 07/02/22 20:36 Calculated Osmolality 283 mOsm/kg (285-295) L 07/02/22 20:36 Calcium 8.5 mg/dL (8.5-10.5) 07/02/22 20:36 Total Bilirubin 0.2 mg/dL (0.15-1.2) 07/02/22 20:36 AST 18 U/L (0-40) 07/02/22 20:36 ALT 21 U/L (0-41) 07/02/22 20:36 Alkaline Phosphatase 88 U/L (40-130) 07/02/22 20:36 Total Protein 7.4 g/dL (6.6-8.7) 07/02/22 20:36 Albumin 4.3 g/dL (3.5-5.2) 07/02/22 20:36 Globulin 3.1 g/dL (1.3-4.6) 07/02/22 20:36 Salicylates 0.5 mg/dL (3-10) L 07/02/22 20:36 Urine Opiates Screen Negative ng/mL (Negative) 07/02/22 20:39 Acetaminophen < 5.0 ug/mL (10-30) L 07/02/22 20:36 Ur Barbiturates Screen Negative ng/mL (Negative) 07/02/22 20:39 Ur Phencyclidine Scrn Negative ng/mL (Negative) 07/02/22 20:39 Ur Amphetamines Screen Negative ng/mL (Negative) 07/02/22 20:39 U Benzodiazepines Scrn Negative ng/mL (Negative) 07/02/22 20:39 Urine Cocaine Screen Negative ng/mL (Negative) 07/02/22 20:39 U Marijuana (THC) Screen Positive ng/mL (Negative) H 07/02/22 20:39 Ethyl Alcohol < 10 mg/dL (0-10) 07/02/22 20:36 Discharge Plan Discharge Patient Disposition: Admitted As Inpatient Admit Provider: Oswaldo Marley Clinical Impression: Major depressive disorder, severe, Suicidal ideation Condition: Stable Discharge Diet: Regular Discharge Activity: Resume usual activity Coding Level of Care Code ED Show Card Letterer for Chg Fwd Exam Detailed Documented by User: Isai Feng MD 07/10/22 04:59 HPI - Psych General: Chief Complaint: Psychiatric Symptoms Stated Complaint: SI Time Seen by Provider: 07/02/22 20:20 PFSH ED PFSH: Medical History Depression Surgical History No significant past surgical history Physical Exam Neuro: JOSEPHINE COMA SCALE: document GCS findings Rollins coma scale total score: 15 Course Vital Signs: Vital signs: Vital Signs Temperature 98.3 F 07/05/22 15:42 Pulse Rate 75 07/05/22 15:42 Respiratory Rate 18 07/05/22 15:42 Blood Pressure 149/99 07/05/22 15:42 Pulse Oximetry 97 07/05/22 15:42 Oxygen Delivery Me thod 07/05/22 15:22 MDM - Psych Medical Decision Making Patient will be an admit to [facility] to Dr. Marley. I discussed this case with Adilene SOTO. I reviewed documentation and laboratory studies. Given reported clinical history and exam there is no indication for imaging. Isai Feng MD Emergency Medicine Lab Data 07/02/22 20:36 07/02/22 20:36 Laboratory Results WBC 8.9 10^3/uL (4.0-10.0) 07/02/22 20:36 RBC 4.94 10^6/uL (4.1-5.3) 07/02/22 20:36 Hgb 16.0 g/dL (11.7-16.6) 07/02/22 20:36 Hct 46.2 % (42.0-52.0) 07/02/22 20:36 MCV 93.5 fl (80-94) 07/02/22 20:36 MCH 32.4 pg (28.0-34.0) 07/02/22 20:36 MCHC 34.6 g/dL (30.0-36.0) 07/02/22 20:36 RDW 12.0 % (12.1-15.1) L 07/02/22 20:36 Plt Count 263 10^3/cmm (130-400) 07/02/22 20:36 MPV 8.9 fL (7.4-10.4) 07/02/22 20:36 Neut % (Auto) 71.8 % 07/02/22 20:36 Lymph % (Auto) 18.1 % 07/02/22 20:36 [place] % (Auto) 6.1 % 07/02/22 20:36 Eos % (Auto) 2.7 % 07/02/22 20:36 Baso % (Auto) 0.6 % 07/02/22 20:36 Neut # (Auto) 6.36 10^3/uL (1.8-7.7) 07/02/22 20:36 Lymph # (Auto) 1.6 10^3/uL (0.8-4.8) 07/02/22 20:36 [place] # (Auto) 0.5 10^3/uL (0.2-0.9) 07/02/22 20:36 Eos # (Auto) 0.2 10^3/uL (0.0-0.8) 07/02/22 20:36 Baso # (Auto) 0.1 10^3/uL (0.0-0.1) 07/02/22 20:36 Nucleated RBC % (auto) 0 % 07/02/22 20:36 Nucleated RBCs # 0.0 /100WBC 07/02/22 20:36 Sodium 138 mmol/L (136-145) 07/02/22 20:36 Potassium 4.2 mmol/L (3.5-5.1) 07/02/22 20:36 Chloride 103 mmol/L (98-107) 07/02/22 20:36 Carbon Dioxide 23 mmol/L (22-29) 07/02/22 20:36 Anion Gap 16.2 (5-19) 07/02/22 20:36 BUN 7 mg/dL (6-20) 07/02/22 20:36 Creatinine 0.9 mg/dL (0.7-1.2) 07/02/22 20:36 GFR Calculation 91.3 mL/min (90-130) 07/02/22 20:36 Glucose 83 mg/dL (65-115) 07/02/22 20:36 Calculated Osmolality 283 mOsm/kg (285-295) L 07/02/22 20:36 Calcium 8.5 mg/dL (8.5-10.5) 07/02/22 20:36 Total Bilirubin 0.2 mg/dL (0.15-1.2) 07/02/22 20:36 AST 18 U/L (0-40) 07/02/22 20:36 ALT 21 U/L (0-41) 07/02/22 20:36 Alkaline Phosphatase 88 U/L (40-130) 07/02/22 20:36 Total Protein 7.4 g/dL (6.6-8.7) 07/02/22 20:36 Albumin 4.3 g/dL (3.5-5.2) 07/02/22 20:36 Globulin 3.1 g/dL (1.3-4.6) 07/02/22 20:36 Salicylates 0.5 mg/dL (3-10) L 07/02/22 20:36 Urine Opiates Screen Negative ng/mL (Negative) 07/02/22 20:39 Acetaminophen < 5.0 ug/mL (10-30) L 07/02/22 20:36 Ur Barbiturates Screen Negative ng/mL (Negative) 07/02/22 20:39 Ur Phencyclidine Scrn Negative ng/mL (Negative) 07/02/22 20:39 Ur Amphetamines Screen Negative ng/mL (Negative) 07/02/22 20:39 U Benzodiazepines Scrn Negative ng/mL (Negative) 07/02/22 20:39 Urine Cocaine Screen Negative ng/mL (Negative) 07/02/22 20:39 U Marijuana (THC) Screen Positive ng/mL (Negative) H 07/02/22 20:39 Ethyl Alcohol < 10 mg/dL (0-10) 07/02/22 20:36 Discharge Plan Discharge Patient Disposition: Admitted As Inpatient Admit Provider: Oswaldo Marley Clinical Impression: Major depressive disorder, severe, Suicidal ideation Condition: Stable Discharge Diet: Regular Discharge Activity: Resume usual activity Coding Level of Care Code ED Show Card Letterer for Mamadou Fwd Exam Detailed
[2022-07-02 20:46] LABS: Basophils # 0.1 10^3/uL (0.0-0.1); Basophils % 0.6 %; Eosinophils # 0.2 10^3/uL (0.0-0.8); Eosinophils % 2.7 %; Hematocrit 46.2 % (42.0-52.0); Lymphocytes # 1.6 10^3/uL (0.8-4.8); Lymphocytes % 18.1 %; Mean Corpuscular HGB Conc 34.6 g/dL (30.0-36.0); Mean Corpuscular Hemoglobin 32.4 pg (28.0-34.0); Mean Corpuscular Volume 93.5 fl (80-94); Mean Platelet Volume 8.9 fL (7.4-10.4); Monocytes # 0.5 10^3/uL (0.2-0.9); Monocytes % 6.1 %; Neutrophils # 6.36 10^3/uL (1.8-7.7); Neutrophils % 71.8 %; Nucleated Red Blood Cells % 0 %; Platelet Count 263 10^3/cmm (130-400); Red Blood Count 4.94 10^6/uL (4.1-5.3); White Blood Count 8.9 10^3/uL (4.0-10.0)
[2022-07-02 21:15] LABS: Alanine Aminotransferase 21 U/L (0-41); Albumin Level 4.3 g/dL (3.5-5.2); Alkaline Phosphatase 88 U/L (40-130); Anion Gap 16.2 (5-19); Aspartate Amino Transferase 18 U/L (0-40); Blood Urea Nitrogen 7 mg/dL (6-20); Calcium 8.5 mg/dL (8.5-10.5); Carbon Dioxide 23 mmol/L (22-29); Chloride 103 mmol/L (98-107); Creatinine Clr Calc Pharmacy 116.0824; Globulin 3.1 g/dL (1.3-4.6); Glomerular Filtration Rate 91.3 mL/min (90-130); Glucose 83 mg/dL (65-115); Osmolality Calculated 283 mOsm/kg (285-295); Potassium 4.2 mmol/L (3.5-5.1); Salicylate 0.5 mg/dL (3-10); Sodium 138 mmol/L (136-145); Total Bilirubin 0.2 mg/dL (0.15-1.2); Total Protein 7.4 g/dL (6.6-8.7)
[2022-07-02 21:24] LABS: Acetaminophen < 5.0 ug/mL (10-30); Alcohol Level < 10 mg/dL (0-10)
[2022-07-02 21:26] LABS: Amphetamines Screen Urine Negative (Negative); Barbiturates Screen Urine Negative (Negative); Benzodiazepines Screen Urine Negative (Negative); Cocaine Screen Urine Negative (Negative); Opiate Screen Urine Negative (Negative); PCP Screen Urine Negative (Negative); THC Screen Urine Positive (Negative)
[2022-07-02 22:09] VITALS: BP 139/91; PULSE 70; RESP 16; O2SAT 96
[2022-07-02 22:14] VITALS: BP 142/98; PULSE 69; RESP 18; TEMP 36.9; O2SAT 97
[2022-07-02] MEDS: trazodone 50 mg Tablet PO (22:59)
[2022-07-02] MEDS: quetiapine 100 mg Tablet 200 MG PO (22:59)
[2022-07-03 05:57] VITALS: RESP 16
[2022-07-03] MEDS: fluoxetine 20 mg Capsule 40 MG PO (08:30)
[2022-07-03] MEDS: nicotine 2 mg Gum BUCCAL (08:31)
[2022-07-03] MEDS: nicotine 4 mg lozenge MUCOUS MEM ×4 (12:50→20:45)
[2022-07-03] MEDS: OLANZapine 5 mg ODT PO (13:42)
--- NOTE | 2022-07-03 13:43 | PC.NURSE ---
pt came to nurses station complaining of feeling agitated; asking for zyprexa. Medicated per request. Pt said has thoughts flying throughout his mind, thinking about here and home. Pt sat by phone after medication given.
[2022-07-03 14:00] VITALS: BP 148/74; PULSE 88; RESP 18; TEMP 36.8; O2SAT 98
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
[2022-07-03] MEDS: quetiapine 100 mg Tablet 200 MG PO (20:45)
[2022-07-03] MEDS: trazodone 50 mg Tablet PO (20:48)
[2022-07-03] MEDS: docusate sodium 100 mg Capsule PO (20:48)
[2022-07-03 22:00] VITALS: BP 141/97; PULSE 98; RESP 16; RESP 18; TEMP 36.7; O2SAT 97
[2022-07-04] MEDS: hyDROXYzine 25 mg Capsule 50 MG PO ×2 (00:21→20:57)
[2022-07-04] MEDS: trazodone 50 mg Tablet PO (00:21)
[2022-07-04] MEDS: acetaminophen 325 mg Tablet 650 MG PO (05:19)
[2022-07-04 05:33] VITALS: BP 143/100; PULSE 87; RESP 18; TEMP 36.7; O2SAT 97
[2022-07-04] MEDS: nicotine 4 mg lozenge MUCOUS MEM ×7 (06:35→20:58)
[2022-07-04] MEDS: fluoxetine 20 mg Capsule 40 MG PO (08:03)
[2022-07-04] MEDS: OLANZapine 5 mg ODT PO (09:30)
[2022-07-04] MEDS: haloperidol 5 mg Tablet PO (09:30)
[2022-07-04 14:00] VITALS: BP 136/96; PULSE 80; RESP 18; TEMP 36.6; O2SAT 98
[2022-07-04] MEDS: fluoxetine 20 mg Capsule PO (18:16)
--- NOTE | 2022-07-04 19:33 | P.NPUPN_ITS ---
Subjective NPU Subjective: Patient presented today continuing to report some challenges with his depression and we discussed the risks, benefits and alternatives of increasing his Prozac to 60 mg p.o. daily. We discussed working with the social work team to find an alternative place to go given the challenges that would exist as we get into the weekend. 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 Mental Status Exam MSE Comments: This is well nourished, well developed white male in hospital scrubs with grooming and eye contact. No abnormal movements except for mild psychomotor retardation. Cooperative with exam in mild distress. Speech was decreased rate and normal volume. Mood described as a little better. His affect is restricted in range. Thought process was linear and organized. Thought content: patient denied suicidal or homicidal ideation. There were no delusions reported or noted and denies any auditory or visual hallucinations. Attention and concentration appeared intact and memory appeared mostly reliable but none were formally tested. He is alert and oriented x3. Insight and judgment are limited, impulse control is limited. Vitals/I&O/Wt Last Vital Signs Temp 97.7 F 07/05/22 05:21 Pulse 84 07/05/22 05:21 Resp 18 07/05/22 05:21 BP 131/79 07/05/22 05:21 Pulse Ox 94 07/05/22 05:21 O2 Del Method 07/04/22 22:00 Data NPU 07/02/22 20:36 07/02/22 20:36 A&P Assessment and plan (1) Suicidal ideation: (2) Major depressive disorder, severe: (3) PTSD (post-traumatic stress disorder): Plan This is a 47 year old white man with a history of trauma, depression and genetic loading for mental health and lethality issues who presents again after about 2 weeks post discharge endorsing suicidal ideation, med adherence and endorsing feeling lobe secondary to his psychosocial challenges.. 1. Continue current medications. Increase Prozac to 60 mg p.o. every morning but also refreshing his memory about the other options including TMS and Spravato. 2. Encourage individual, group and milieu therapy 3. Continue q-15 minute check for safety 4. Recommend sober living treatment at the highest level of care to which the patient is willing to commit. Involuntary Hold Information 96 Hour Hold: 96 Hour Involuntary Admission: No Attestations NPU 2 Medical Necessity Statement*: Inpatient hospitalization is medically necessary and the clinically appropriate intervention at this time. We will monitor medica tions and make changes as indicated. Patient will be in the hospital for over two midnights. Likely length of stay is 1-3 days. Coding Level of Care Code Acute Code for Chg Fwd Diagnoses Suicidal ideation R45.851 Major depressive disorder, severe F32.2 PTSD (post-traumatic stress disorder) F43.10
[2022-07-04] MEDS: trazodone 50 mg Tablet 100 MG PO (20:58)
[2022-07-04] MEDS: quetiapine 100 mg Tablet 200 MG PO (20:58)
[2022-07-04 22:00] VITALS: BP 148/108; PULSE 77; RESP 18; TEMP 36.8; O2SAT 92
[2022-07-05] MEDS: calcium carbonate 500 mg Chew Tablet 1000 MG PO (03:49)
[2022-07-05] MEDS: acetaminophen 325 mg Tablet 650 MG PO (05:18)
[2022-07-05 05:21] VITALS: BP 131/79; PULSE 84; RESP 18; TEMP 36.5; O2SAT 94
[2022-07-05] MEDS: nicotine 4 mg lozenge MUCOUS MEM ×4 (06:44→13:43)
[2022-07-05] MEDS: docusate sodium 100 mg Capsule PO (08:50)
[2022-07-05] MEDS: fluoxetine 20 mg Capsule 60 MG PO (08:51)
[2022-07-05 14:00] VITALS: BP 131/79; PULSE 84; RESP 18; TEMP 36.5; O2SAT 94
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
[2022-07-05 15:22] VITALS: BP 149/99; PULSE 75; RESP 18; TEMP 36.8; O2SAT 97
[2022-07-05 15:42] VITALS: BP 149/99; PULSE 75; RESP 18; TEMP 36.8; O2SAT 97
== END 2022-07-05 15:45 | disposition home or self-care (01) | DRG 881 ==
LOC: ER 21:07 → NP 22:07
PROVIDERS: Admitting Provider Psychiatry & Neurology Psychiatry; Emergency Provider Physician Assistant; Visit Provider Psychiatry & Neurology Psychiatry
DX: F32.9 Major depressive disorder, single episode, unspecified (principal); R45.851 Suicidal ideations; F43.10 Post-traumatic stress disorder, unspecified; Z59.00 Homelessness unspecified
CPT/HCPCS: 80053; 80306; 80307; 85025; 97150; 97165; 99285